=== PATIENT | female | born 1975 | race Caucasian/White ===

== ENCOUNTER 2023-01-23 19:40 | Emergency (ER) | payer MEDICAID ==
[~2023-01-23] VITALS: Ht 165.1 cm; Wt 78.6 kg
[2023-01-23 19:52] VITALS: BP 143/75
== END 2023-01-23 21:49 | disposition home or self-care (01) ==
LOC: ER 19:40
DX: M77.8 Other enthesopathies, not elsewhere classified (principal); M25.511 Pain in right shoulder
CPT/HCPCS: 99281